=== PATIENT | male | born 1950 | race Caucasian/White ===

== ENCOUNTER → 2023-11-05 13:45 | Outpatient (REF) | payer MEDICARE, SELFPAY ==
[2023-11-05 15:42] LABS: % Basophils 0.5 % (0-2); % Immature Granulocytes 0.2 % (0-0.5); % Lymphocytes 23.7 % (20.5-51.1); % Monocytes 8.5 % (1.7-9.3); % Neutrophils 65.1 % (42.2-75.2); Absolute Basophils 0.1 10^3/uL (0-0.2); Absolute Eosinophils 0.2 10^3/uL (0-0.7); Absolute Lymphocytes 2.2 10^3/uL (1.2-3.4); Absolute Monocytes 0.8 10^3/uL (0.1-0.6); Absolute Neutrophils 5.9 10^3/uL (1.4-6.5); Hematocrit 42.2 % (39.0-52.0); Hemoglobin 14.7 g/dL (13.0-18.0); Mean Corp Hgb Conc. 34.8 g/dL (33.0-37.0); Mean Corpuscular Hgb 31.1 pg (27.0-31.0); Mean Corpuscular Volume 89.4 fL (80.0-94.0); Mean Platelet Volume 10.8 fL (7.4-10.4); Nucleated Red Blood Cells % 0 % (-); Platelet Count 257 10^3/uL (130-400); Red Blood Cell Count 4.72 10^6/uL (4.70-6.10); Red Cell Dist. Width 12.5 % (11.5-14.5); White Blood Cell Count 9.1 10^3/uL (4.8-10.8)
[2023-11-05 16:50] LABS: ALT (SGPT) 33 U/L (0-50); AST (SGOT) 35 U/L (17-59); Alkaline Phosphatase 66 U/L (38-126); Blood Urea Nitrogen 24 mg/dl (9-20); Calcium 9.7 mg/dl (8.4-10.2); Carbon Dioxide 26 mmol/L (22-30); Chloride 99 mmol/L (98-107); Glucose 99 mg/dl (70-99); HDL Cholesterol 48 mg/dl; LDL Cholesterol, Calculated 138 mg/dl; Sodium 138 mmol/L (135-145); Total Bilirubin 0.8 mg/dl (0.2-1.3); Total Cholesterol 214 mg/dl (50-199); Total Protein 8.1 g/dl (6.3-8.2); Triglyceride 140 mg/dl (10-149); Very Low Density Lipoprotein 28 mg/dl (0-30); eGFR > 60.00
[2023-11-05 16:58] LABS: Potassium 3.8 mmol/L (3.5-5.1)
[2023-11-05 17:19] LABS: PSA, Total - Screen 4.19 ng/ml (0.0-4.0); TSH Reflex To Free T4 1.13 uIU/ml (0.47-4.68)
[2023-11-06 10:07] LABS: Glycohemoglobin (HgbA1c) 5.6 % (4.0-5.6)
== END ==
LOC: REG 13:45
PROVIDERS: ATTENDING PHYSICIAN Family Medicine
DX: E78.00 Pure hypercholesterolemia, unspecified (principal); R73.02 Impaired glucose tolerance (oral); Z13.29 Encounter for screening for other suspected endocrine disorder; R53.83 Other fatigue; Z12.5 Encounter for screening for malignant neoplasm of prostate
CPT/HCPCS: 36415; 80053; 80061; 83036; 84443; 85025; G0103

== ENCOUNTER → 2024-05-29 10:01 | Outpatient (REF) | payer MEDICARE, SELFPAY ==
[2024-05-29 11:40] LABS: Glycohemoglobin (HgbA1c) 5.7 % (4.0-5.6)
[2024-05-29 12:14] LABS: ALT (SGPT) 32 U/L (0-50); AST (SGOT) 35 U/L (17-59); Albumin 4.9 g/dl (3.5-5.0); Alkaline Phosphatase 65 U/L (38-126); Blood Urea Nitrogen 17 mg/dl (9-20); Calcium 10.1 mg/dl (8.4-10.2); Carbon Dioxide 26 mmol/L (22-30); Chloride 102 mmol/L (98-107); Glucose 99 mg/dl (70-99); HDL Cholesterol 44 mg/dl; LDL Cholesterol, Calculated 74 mg/dl; Potassium 4.8 mmol/L (3.5-5.1); Sodium 139 mmol/L (135-145); Total Cholesterol 140 mg/dl (50-199); Total Protein 8.3 g/dl (6.3-8.2); Triglyceride 112 mg/dl (10-149); Very Low Density Lipoprotein 22 mg/dl (0-30); eGFR > 60.00
[2024-05-31 01:02] LABS: PSA Total 3.8 ng/mL (0.0-4.0)
== END ==
LOC: REG 10:01
PROVIDERS: ATTENDING PHYSICIAN Family Medicine
DX: E78.00 Pure hypercholesterolemia, unspecified (principal); R73.02 Impaired glucose tolerance (oral); R97.20 Elevated prostate specific antigen [PSA]
CPT/HCPCS: 36415; 80053; 80061; 83036; 84153; 84154

== ENCOUNTER → 2025-02-15 08:51 | Outpatient (REF) | payer MEDICARE, SELFPAY ==
[2025-02-15 09:36] LABS: Hematocrit 43.7 % (39.0-52.0); Hemoglobin 14.9 g/dL (13.0-18.0); Mean Corp Hgb Conc. 34.1 g/dL (33.0-37.0); Mean Corpuscular Volume 90.7 fL (80.0-94.0); Nucleated Red Blood Cells % 0 % (-); Platelet Count 246 10^3/uL (130-400); Red Cell Dist. Width 12.7 % (11.5-14.5)
[2025-02-15 10:03] LABS: ALT (SGPT) 33 U/L (0-50); AST (SGOT) 29 U/L (17-59); Albumin 4.8 g/dl (3.5-5.0); Alkaline Phosphatase 68 U/L (38-126); Blood Urea Nitrogen 22 mg/dl (9-20); Calcium 9.5 mg/dl (8.4-10.2); Carbon Dioxide 27 mmol/L (22-30); Chloride 105 mmol/L (98-107); Glucose 105 mg/dl (70-99); HDL Cholesterol 44 mg/dl; LDL Cholesterol, Calculated 83 mg/dl; Potassium 3.5 mmol/L (3.5-5.1); Sodium 139 mmol/L (135-145); Total Protein 8.3 g/dl (6.3-8.2); Very Low Density Lipoprotein 22 mg/dl (0-30); eGFR > 60.00
[2025-02-15 10:33] LABS: Glycohemoglobin (HgbA1c) 5.7 % (4.0-5.9)
== END ==
LOC: REG 08:51
PROVIDERS: ATTENDING PHYSICIAN Family Medicine
DX: E78.00 Pure hypercholesterolemia, unspecified (principal); R73.02 Impaired glucose tolerance (oral); R53.83 Other fatigue
CPT/HCPCS: 36415; 80053; 80061; 83036; 85025